=== PATIENT | female | born 1935 | race Two or more races ===

== ENCOUNTER → 2024-03-24 | Emergency (ER) | payer OTHER ==
[~2024-03-24] VITALS: Ht 149.9 cm; Wt 61.2 kg
[~2024-03-24] MED LIST: COZAAR50 MG PO; KETOROLAC TROMETHAMINE 10 MG TABLET PO ONE; KETOROLAC TROMETHAMINE 10 MG TABLET PO STA; LIPITOR20 MG; TENORMIN25 MG PO; TIROSINT50 MCG PO
== END | disposition home or self-care (01) ==
LOC: ER 07:22
DX: M79.606 Pain in leg, unspecified (principal); R60.0 Localized edema; I10 Essential (primary) hypertension; E03.8 Other specified hypothyroidism; Z91.018 Allergy to other foods